=== PATIENT | female | born 2000 | race Caucasian/White ===

== ENCOUNTER 2023-02-03 09:32 | Emergency (ER) | payer OTHER ==
[~2023-02-03] VITALS: Ht 162.6 cm; Wt 52.6 kg
--- NOTE | 2023-02-03 09:36 | NUR ---
BIBS C/O RIGHT SIDED FLANK PAIN X 5 HOURS. WITH VOMITING AND HEMATURIA. PT HAS HX OF KIDNEY STONES. AMBULATORY, PLACED IN BED, AAOX4, IN PAIN 10/10 PS.
--- NOTE | 2023-02-03 09:40 | NUR ---
BLOOD DRAWN AND SENT TO LAB
[2023-02-03] MEDS ORDERED: KETOROLAC TROMETHAMINE 15 MG/ML VIAL ONE ×2 (09:49→11:16)
[2023-02-03] MEDS ORDERED: ONDANSETRON HCL/PF 4 MG/2 ML VIAL ONE ×2 (09:49→10:48)
[2023-02-03] MEDS ORDERED: ACETAMINOPHEN ES 500 MG TABLET ONE ×2 (09:50→09:54)
[2023-02-03 09:55] LABS: BASOPHILS % (AUTO) 0.4 % (0.0-2.0); EOSINOPHILS % (AUTO) 1.4 % (0.0-6.0); HEMATOCRIT 40 % (33-45); LYMPHOCYTES # (AUTO) 3.6 K/uL (0.8-4.8); LYMPHOCYTES % (AUTO) 37.7 % (20.0-44.0); MEAN CORPUSCULAR HGB CONC 33 g/dl (31.0-36.0); MEAN CORPUSCULAR VOLUME 90 fL (82-100); MONOCYTES # (AUTO) 0.7 K/uL (0.1-1.30); NEUTROPHILS # (AUTO) 5.1 K/uL (1.8-8.9); NEUTROPHILS % (AUTO) 53.5 % (43.0-81.0); PLATELET COUNT (AUTO) 350 K/uL (150-450); RED BLOOD CELL COUNT(AUTO) 4.41 MIL/uL (4.0-5.2); WHITE BLOOD COUNT (AUTO) 9.5 K/uL (4.3-11.0)
[2023-02-03] MEDS ORDERED: ACETAMINOPHEN ES 500 MG TABLET PO ONE (10:00)
[2023-02-03] MEDS ORDERED: IV NS 0.9% 1,000 ML BAG IV ONE (10:00)
[2023-02-03] MEDS ORDERED: KETOROLAC TROMETHAMINE INJ 30 MG/ML VIAL IV ONE ×2 (10:00→11:30)
[2023-02-03] MEDS ORDERED: ONDANSETRON HCL/PF 4 MG/2 ML VIAL IVP ONE (10:00)
--- NOTE | 2023-02-03 10:05 | NUR ---
AT BEDSIDE FOR EVAL.
[2023-02-03 10:16] LABS: ALBUMIN 4.1 g/dL (3.4-5.0); BILIRUBIN,DIRECT 0.2 mg/dL (0.0-0.2); CALCIUM, SERUM 9.6 mg/dL (8.5-10.1); TOTAL PROTEIN, SERUM 7.3 g/dL (6.4-8.2)
--- NOTE | 2023-02-03 10:16 | NUR ---
U/S TECH AT BEDSIDE
[2023-02-03 10:22] LABS: BILIRUBIN,URINE NEGATIVE (NEGATIVE); COLOR,URINE YELLOW (YELLOW); LEUKOCYTE ESTERASE ,URINE NEGATIVE (NEGATIVE); NITRITE, URINE NEGATIVE (NEGATIVE); PROTEIN,URINE NEGATIVE (NEGATIVE); UGLUCOSE NEGATIVE (NEGATIVE); UROBILINOGEN,URINE 0.2 EU/dL (0.2)
[2023-02-03] MEDS ORDERED: FENTANYL PF 100MCG/2ML AMPUL IV ONE (10:30)
[2023-02-03] MEDS ORDERED: FENTANYL PF 100MCG/2ML AMPUL ONE (10:32)
--- NOTE | 2023-02-03 10:36 | NUR ---
PATIENT TAKEN TO CT VIA SP
[2023-02-03 10:47] LABS: BACTERIA,URINE Few /HPF (None Seen); RBC,URINE 81-100 /HPF (0-2); WBC,URINE 0-2 /HPF (0-3)
[2023-02-03 10:48] LABS: SQUAMOUS EPITHELIAL CELL,UR Moderate /HPF (None Seen)
[2023-02-03] MEDS ORDERED: ONDANSETRON HCL/PF 4 MG/2 ML VIAL IV ONE (11:00)
[2023-02-03] MEDS ORDERED: HYDROMORPHONE 1 MG/1 ML DISP.SYRIN ONE (11:08)
[2023-02-03] MEDS ORDERED: METOCLOPRAMIDE HCL 10 MG/2 ML VIAL ONE (11:16)
[2023-02-03] MEDS ORDERED: diphenhydrAMINE HCL 50 MG/ML VIAL ONE (11:16)
--- NOTE | 2023-02-03 11:25 | NUR ---
MD SPOKE WITH PT REGARDING CT AND LAB RESULTS EDUCATED PT ON SEEKING PRIMARY CARE PROVIDER AND A UROLOGY CONSULTATION FOR PAIN MANAGEMENT AND OTHER TREATMENTS.
[2023-02-03] MEDS ORDERED: METOCLOPRAMIDE HCL 10 MG/2 ML VIAL IV ONE (11:30)
[2023-02-03] MEDS ORDERED: diphenhydrAMINE HCL 50 MG/ML VIAL IV ONE (11:30)
[2023-02-03] MEDS ORDERED: HYDROMORPHONE 1 MG/1 ML DISP.SYRIN IV ONE (11:30)
[2023-02-03] MEDS ORDERED: ONDA4TAB5 PO (12:03)
[2023-02-03] MEDS ORDERED: HYDR-4209 PO (12:03)
[2023-02-03] MEDS ORDERED: TAMS-12 PO (12:03)
[2023-02-03] MEDS ORDERED: IBUP-1955 PO (12:03)
[2023-02-03 13:32] VITALS: BP 117/67
== END 2023-02-03 12:00 | disposition home or self-care (01) ==
LOC: ER 10:20
DX: N20.0 Calculus of kidney (principal); N13.30 Unspecified hydronephrosis
CPT/HCPCS: 99285; 96375; 74176; 96374; 76770; 96361; 96376; 85025; 80048; 83690; 80076; 84703; 36415; 80307; 81001; J1200; J3010; J2765; J2405 ×2; J1170; J1885 ×2